=== PATIENT | male | born 1985 ===

== ENCOUNTER → 2021-07-29 20:17 | Outpatient (ROUT) | payer OTHER, MEDICAID, SELFPAY ==
[2021-07-29 21:17] LABS: COVID-19 CEPHEID PCR (VTM/NP) Negative (Negative)
== END ==
PROVIDERS: Visit Provider Family Medicine
DX: Z20.822 Contact with and (suspected) exposure to COVID-19 (principal); R05.1 Acute cough; R50.9 Fever, unspecified; J02.9 Acute pharyngitis, unspecified
CPT/HCPCS: U0003; U0005

== ENCOUNTER → 2021-12-20 07:18 | Outpatient (CLI) | payer OTHER, MEDICAID, SELFPAY ==
[2021-12-20 08:31] LABS: COVID19 -Nasal RAPID Negative (Negative)
--- NOTE | 2021-12-20 18:32 | DI.NM.S_ITS ---
DATE OF SERVICE: 12/20/2021 PROCEDURE PERFORMED: Exercise stress test. INDICATION: Chest pain. CARDIAC STRESS: The patient underwent exercise stress test under the supervision of an attending staff. The patient walked on Jordy protocol for 12 minutes and 09 seconds, achieved 91 percent of target heart rate. Baseline blood pressure 115/87 mmHg. Peak blood pressure 172/68 mmHg. VAISHALI + 8 percent. Achieved 12.8 METS of workload. Baseline rhythm was sinus. During stress, no ischemic changes seen. No significant arrhythmias. No chest discomfort. CONCLUSION: Exercise stress test is negative for inducible ischemia. Appropriate hemodynamic response. Walked on Jordy protocol for 12 minutes and 09 seconds. 12.8 metabolic equivalents of workload. No significant arrhythmias. No chest discomfort. Overall low-risk exercise stress test. FabioJonatanSpencer - Jeff/ajay doc#: [id number]/job#: [id number] dd: 12/20/2021 16:47:00 dt: 12/20/2021 17:45:00 DICTATING /COPIES TO: Blanca Guajardo MD COPIES MNE: SHYAM;
== END ==
PROVIDERS: PCP Family Medicine; Referring Provider Family Medicine; Visit Provider Family Medicine
DX: R07.89 Other chest pain (principal); Z20.822 Contact with and (suspected) exposure to COVID-19
CPT/HCPCS: 87635; 93017